=== PATIENT | female | born 1940 | race Caucasian/White ===

== ENCOUNTER 2023-09-29 06:15 | Day surgery (SDC) | payer MEDICARE, OTHER, SELFPAY ==
[2023-09-21 08:05] VITALS: BMI 22.6
[2023-09-29] VITALS (13 sets, daily range): BP systolic 102–167; BP diastolic 43–84; PULSE 55–76; RESP 15–25; TEMP 35.7–36.6; O2SAT 92–100; BMI 21.6
--- NOTE | 2023-09-29 | DI.RAD.S_ITS ---
PROCEDURE: XR HIP W PEL IF DONE LT 2V INDICATIONS: LEFT GIULIANO TECHNIQUE: Fluoroscopic guidance utilized for a left total hip arthroplasty COMPARISON: None. FINDINGS: Fluoroscopic images submitted for a left total hip arthroplasty placement. Please see operative note for further discussion. IMPRESSION: Fluoroscopic guidance. Dictated by: Joao Sandy M.D. on 09/29/2023 at 10:54 Approved by: Joao Sandy M.D. on 09/29/2023 at 10:55
--- NOTE | 2023-09-29 06:00 | DI.RAD.S_ITS ---
PROCEDURE: XR HIP W PEL IF DONE LT 2V INDICATIONS: GIULIANO TECHNIQUE: 2 view(s) of the hip acquired. COMPARISON: [facility], CR, XR HIP W PEL IF DONE LT 2V, 09/29/2023, 9:21. FINDINGS: Bones: Patient is status post left hip arthroplasty, with hardware components in expected positions. The hip joint appears congruent. The visualized bony structures appear intact. Soft tissues: Overlying postoperative changes are noted. Coarse calcification projecting over the mid pelvis likely related to uterine fibroid.. IMPRESSION: Expected post-operative appearance of a hip arthroplasty. Dictated by: Morena Laguna MD, PhD on 09/29/2023 at 11:16 Approved by: Morena Laguna MD, PhD on 09/29/2023 at 11:17
[2023-09-29] MEDS: ACETAMINOPHEN 325 MG TABLET 975 MG PO (07:03)
[2023-09-29] MEDS: CELECOXIB 200 MG CAPSULE PO (07:04)
[2023-09-29] MEDS: LACTATED RINGERS 1,000 ML 42 ML IV ×2 (07:04→08:55)
[2023-09-29] MEDS: VANCOMYCIN 1,000 MG/200 ML PIGGYBACK 200 MG IV (07:04)
--- NOTE | 2023-09-29 07:41 | P.OP_ITS ---
Operative Date/Time/Diagnoses Date of procedure: 09/29/23 Time of procedure: 08:00 Pre-op diagnosis: Severe left hip OA Post-op diagnosis: same Procedure & Clinicians Procedure: Left total hip arthroplasty anterior approach Same procedure as scheduled: Yes Indications: The patient has had progressively worsening left hip pain with radiographic changes consistent with arthritis. Non-operative management has failed and the patient has requested total hip replacement. The risks, benefits and alternatives to surgery were discussed with the patient prior to proceeding. Risks discussed included, but were not limited to, failure to relieve pain, leg length discrepancy, dislocation, stiffness, infection, nerve damage, deep venous thrombosis, pulmonary embolism, stroke, coma, heart attack, permanent paralysis and , as well as the potential need for eventual revision of the prosthetic. Surgeon: Seema Kent Sas Etl Developer: Mike Lopez Anesthesia Type: General and Spinal Operative Notes Findings: Severe left hip osteoarthritis, soft bone, extremely soft and eroded acetabulum, severe fragmentation of the femoral head with severe synovitis and multiple loose bodies Closure Type: primary Specimen(s): none sent Prosthetic devices, grafts, tissues, transplants, or devices: Kent and nephew Redapt cup size 56, neutral poly liner,two 6.5 mm screw 1 not locked, 1 locked, polar stem standard offset size 2 with collar, 36+ 0 cobalt chrome head Estimated Blood Loss (mL): 250 Blood products transfused: none Procedure in detail: The patient was brought to the operating room. Patient was carefully positioned in the supine position. Time-out was performed and antibiotics were given. Anesthesia was induced. She was positioned in the on the table in order to allow hyperextension of the hip. The left lower extremity was prepped and draped in a standard sterile fashion. An anterior left hip incision was made 1 fingerbreadth lateral to the anterior superior iliac spine and extended distally towards the greater trochanter. Dissection was carried out through skin and subcutaneous tissues. Superficial hemostasis was achieved. The fascia over the tensor fascia cecile was defined and incised with a knife. Two Allis clamps were used to grasp the fascia. Tensor fascia cecile was retracted laterally. A gelpi retractor was placed. Dissection was carried out down along the neck. The circumflex vessels were carefully identified and cauterized with the Aqua Mantis. A PA was used during the procedure was essential for intraoperative retraction and safe implantation of the components. Additional dissection was required because of the severe fragmentation of the femoral head. There was severe synovitis and marked abnormality of the capsule with inflammation and marked thickening. There was severe fragmentation of the femoral head with multiple fragments. There was good visualization of the femoral neck. A Cobra was placed superior to the neck and the gluteus fibers were carefully stripped from that superior aspect of the capsule. A 2nd retractor was placed along the inferior aspect of the neck. The rectus insertion along the capsule was partially released. A 3rd retractor that was then gently placed over the rim of the acetabulum under the rectus. Capsule was carefully incised and released from the intertrochanteric line circumferentially superior to the mid sagittal line and inferiorly to the mid sagittal line until the lesser trochanter was palpable. A tag stitch was placed both in the superior and inferior limb of the capsular insertion. Along the acetabulum capsule was also released up to the mid sagittal 12:00 position. A portion of the labrum was resected. A saw was used to perform an osteotomy at the level of the intertrochanteric line and the junction of the superior femoral neck leaving approximately 1 finger breath of residual inferior neck above the lesser trochanter. A 2nd cut was made along the femoral neck at the base of the head and a napkin r ing of neck was removed. Corkscrew was placed in the femoral head and the head was removed without difficulty. There were multiple fragments of the femoral head and severe synovitis and synovectomy as well as generalized debridement of the acetabulum was performed. Retractors were then repositioned around the acetabulum. Residual labrum was resected and additional osteophytes were removed. A reamer that was 4 mm below the templated size was placed by hand in the acetabulum and it was reamed to centralize the acetabulum. It was then reamed up to 2 under the templated size and fluoroscopy was brought in to confirm the position of the reaming and depth of reaming. I reamed 1 under the anticipated size. A trial cup was placed and noted that it was appropriately sized and fluoroscopy confirmed position and depth. The component was open and inserted without difficulty fluoroscopic imaging was used to confirm that the cup had been adequately seated and was well positioned. The bone was very soft and there were areas of erosion. It was felt that she was better served with a Redapt cup because of the severity of bone loss in her acetabulum. It was further stabilized with a a nonlocking and 1 locking. Neutral poly liner was placed. The cup was tested and noted to be stable. Attention was then directed to the femur. The femur was gently hyperextended additional capsular release was performed as needed in order to allow adequate visualization of the proximal femur with elevation of the femur. Patient was placed in a hyperextended slightly adducted position with maximum external rotation. Box osteotome was used to check for any residual neck as well as sclerotic bone along the trochanter. [place] pepper was placed in the femur. Additional broaching was performed. Canal finder was used to determine the alignment of the canal and position. Size 1 broach was placed. The canal was then appropriately broached up to the templated size as long as there was adequate stability of the broach and serial advancement of the broach without excessive impingement. Specific attention was directed at avoiding varus attempting to direct the distal aspect of the broach more anteriorly and avoiding excessive anteversion. Trial reduction showed acceptable range of motion, good stability, no posterior impingement, mandaeism of leg length and appropriate lateral shuck. I also hyperflexed the hip and checked that there was no impingement anteriorly and there was good stability with flexion, adduction and internal rotation. Marcaine and Exparel were injected.. The stem was placed without difficulty. Repeat trial reduction and x-ray showed acceptable overall position, length, and no evidence of the femoral fracture. Final head was placed. Wound was meticulously irrigated with normal saline. The hip was reduced and additional Exparel and Marcaine were injected. The capsule was closed with interrupted nonabsorbable sutures. The fascia of the tensor was closed with interrupted and running Vicryl. No drain was placed. Any tensor fascia cecile muscle that appeared to be contused or injured which was a minimal amount was carefully resected. Capsule around the tensor was injected with Exparel and Marcaine. The skin was closed with barbed stitches for the subcutaneous tissue and skin. We also used surgical glue. The wound was dressed sterilely. Patient was transferred to recovery room in satisfactory condition. Complications: none Post-operative Condition: stable Disposition: Acute Care Plan for aftercare: The patient will be maintained on a standard total hip replacement protocol with weight bearing as tolerated and anterior hip precautions. The patient will receive Aspirin and sequential compression devices for DVT prophylaxis. The patient will be discharged home when safe for the home environment.
--- NOTE | 2023-09-29 07:41 | PM.PREOP ---
Pre-operative Note Interval Note History & Physical reviewed/Exam performed by Physician: Yes Changes to H&P: No
[2023-09-29] MEDS: CEFAZOLIN 2 GM/100 ML PREMIX 100 ML IV ×2 (08:00→16:44)
--- NOTE | 2023-09-29 08:32 | SUR.OPER ---
Supine on padded [place] table with bilateral legs secured in padded positioning boots and suspended in positioning spars, operative leg in traction per surgeon. Head on one pillow. Arm on non-operative side secured on padded armboard <90 degrees abduction. Arm on operative side padded and resting across chest then secured with tape over sheet. Padded perineal post in place per surgeon.
[2023-09-29] MEDS: BUPIVACAINE 0.25% (PF) 60 ML, EPINEPHrine 0.3 MG INJ (08:44)
[2023-09-29] MEDS: BUPIVACAINE LIPOSOME 266 MG/20 ML VIAL INJ ×2 (08:44→10:33)
[2023-09-29] MEDS: TRANEXAMIC ACID 1,000 MG VIAL 2000 MG INJ ×2 (08:48→10:31)
--- NOTE | 2023-09-29 11:38 | SUR.PHASEI ---
Report called to Natalie. Patient transferred to the floor with her belongings bag by DYAN Gipson.
--- NOTE | 2023-09-29 13:45 | PT.IIE ---
Current Diagnoses Unilateral primary osteoarthritis, left hip (09/29/23) Surgery Performed Operation Date: 09/29/23 07:45 Actual Procedures p Total Hip Arthroplasty/Anterior Approach(Left) - Seema Kent MD Surgical History (Last Reviewed 09/29/23 @ 07:01 by Silvia Grace, RN) Hx of bilateral cataract extraction Hx of sinus surgery Medical History (Last Reviewed 09/29/23 @ 07:01 by Silvia Grace, RN) Alzheimer disease Aortic regurgitation History of COVID-19 (04/2022) History of Mohs micrographic surgery for skin cancer HLD (hyperlipidemia) Macular degeneration Mobitz type 1 second degree AV block Osteoarthritis PFO (patent foramen ovale) Pre-diabetes RBBB (right bundle branch block) SCC (squamous cell carcinoma) Physical Therapy Inpatient Evaluation/Re-Eval M1 PT/OT-IP Prior Functional Status Start: 09/29/23 15:31 Freq: NEEDED Status: Active Protocol: Document 09/29/23 13:45 AB (Rec: 09/29/23 15:47 AB [id number]) Medical Review Prior Functional Status Medical History Reviewed Yes Communication able to make needs known Mobility and Gait pt stated that she was modified independent with all mobilities and ambulation without AD but slowly declining in mobility within this year due to hip pain; started using a FWW for the last 2 weeks. Social History Household Members none Living Arrangements House Number of Floors (Floors) One Floor Number of Stairs To Enter/Railing? pt has a guest house that she plans on staying upon d/c: 1 level house with 1 step to enter Home Environment Walk in Shower Home Equipment Front Wheel Walker,Quad Cane, Raised Toilet Seat w/Armrests, Shower Seat without Backrest, Hand Held Shower,Grab Bars In Shower Additional Social History Comment pt's daughter and son-in-law will be staying with pt M2 PT-IP Current Condition Start: 09/29/23 15:31 Freq: NEEDED Status: Active Protocol: Document 09/29/23 13:45 AB (Rec: 09/29/23 15:47 AB [id number]) Physical Therapy Current Condition Current Condition Evaluation Date 09/29/23 Treatment Diagnosis s/p L GIULIANO anterior; difficulty in walking Onset Date 09/29/23 M3 PT-IP Subjective Start: 09/29/23 15:31 Freq: NEEDED Status: Active Protocol: Document 09/29/23 13:45 AB (Rec: 09/29/23 15:47 AB [id number]) Subjective Physical Therapy Visit Type Type Initial Evaluation Visit Start Time 13:45 Visit Stop Time 15:15 Number of GOVERNMENT AFFAIRS SPECIALIST Visits 0 Physical Therapy Visit Comments Patient Comments agreeable to do PT Therapy Pain Assessment Pain Present Pain Present Denied Pain M4 PT-IP Mobility and Gait Start: 09/29/23 15:31 Freq: NEEDED Status: Active Protocol: Document 09/29/23 13:45 AB (Rec: 09/29/23 15:47 AB [id number]) PT-Bed Mobility Assessment Supine to Sit Supine to Sit Standby Assistance PT-Transfer Assessment Sit to and From Stand Sit to and from Stand Minimal Assistance,1 Person Assistance,Use of Upper Extremities Equipment Transfer Assistive Device Gait Belt,Front Wheeled Walker Orthotic/Prosthetic Devices or Brace: No Transfers Transfer Destination Toilet Transfer Technique ambulated Transfer Ability Level of Assist Minimal Assistance,1 Person Assistance,Use of Upper Extremities Comments Mobility Comments pt supine in bed and agreeable to do PT. obtained PLOF and home set up from pt and daughter. pt with memory issues and needs increase time to respond to questions. post -op folder provided to pt and reviewed contents. educated pt regarding L hip anterior precautions. BP in supine: 124/47 O2 sat : 95 AL: 44 pt completed supine to sit SBA . able to sit on EOB SBA. BP: in sittin/52 O2 sat: 100 AL: 38-55. c/o lightheadedness with initial sitting but decreased after a few minutes of sitting on EOB. Pt requesting to use the toilet. completed sit to stand min A and ambulated to the toilet using FWW min A and max cues. pt requiring one step instructions with all tasks and gets easily distracted. pt required min A for standing balance while completing hygiene care and brief management. pt ambulated out of the toilet to the chair using FWW min A and cues. BP: 136/66 AL: 62 O2 sat 100. positioned pt on the chair. call light and table placed within reach. set up caregiver training with pt's daughter for tomorrow at 9 am. Gait Assessment Gait Gait Assistance Required: Minimum Assistance Distance (Feet) 15 Able to Maintain Weight Bearing Status Yes During Gait Assistive Devices Assistive Device Gait Belt,Front Wheeled Walker Orthotic/Prosthetic Devices or Brace: No Gait Deviations General Gait Pattern Antalgic,Decreased Feet Clearance Factors Limiting Gait Function Factors Limiting Gait Function Decreased Activity Tolerance, Decreased Strength,Difficulty Following Directions,Limited Range of Motion,Pain,Poor Balance,Poor Safety Awareness PT-Balance Assessment Sitting Balance and Reactions Static Sitting Balance Ability Good Dynamic Sitting Balance Ability Good Standing Balance and Reactions Static Standing Balance Ability Fair Dynamic Standing Balance Ability Fair Device Used FWW M5 PT-IP Objective Assessments Start: 09/29/23 15:31 Freq: NEEDED Status: Active Protocol: Document 09/29/23 13:45 AB (Rec: 09/29/23 15:47 AB [id number]) Orientation Orientation/Cognition Level of Alertness Alert Orientation Name,Place,Situation Language Function Ability No Deficits Noted Safety Awareness Decreased Safety Awareness Memory Description Short Term Impaired,Nursing Home Impaired Gross Range of Motion Lower Extremity ROM Assessment Within Functional Limits Strength Lower Extremity Strength Assessment Left Impaired Hip 3-/5 Knee 4-/5 Coordination Assessment Gross Coordination Gross Coordination WNL Sensation Assessment Sensation Gross Sensation WNL Muscle Tone Muscle Tone WNL Yes M6 PT-IP Treatment Start: 09/29/23 15:31 Freq: NEEDED Status: Active Protocol: Document 09/29/23 13:45 AB (Rec: 09/29/23 15:47 AB [id number]) Physical Therapy Treatment Education Education Provided Precautions,Weight Bearing Status,Post-Op Packet,Safety M7 PT-IP Assessment and Plan Start: 09/29/23 15:31 Freq: NEEDED Status: Active Protocol: Document 09/29/23 13:45 AB (Rec: 09/29/23 15:47 AB [id number]) PT Summary Assessment and Plan Potential Rehabilitation Potential Fair Status of Condition at Evaluation Evolving Summary Impairments Pain,ROM,Strength,Balance, Coordination,Sensation,Tone, Cognition,Bed Mobility, Transfers,Gait,Activity Tolerance Assessment Summary pt is an 83 y/o F s/p L GIULIANO anterior approach POD 0. pt with L hip anterior precautions and is WBAT. pt requiring min A with mobility using fWW and max cues with all tasks. pt unable to carryover L hip precautions during mobility and needs constant cues for safety. caregiver training set up for tomorrow at 9 am. will continue to assess. Goals Bed Mobility Goal Independent Transfer Goal Independent,Front Wheeled Walker Gait Goal Independent,Front Wheel Walker Gait Distance 150 Other Goals improve transfers and ambulation using LRAD ~ 200 ft mod I up/down 1 step using FWW mod I Days to Meet Goals 5 Frequency of Treatment Frequency Of Treatment Twice a Day Treatment Plan Physical Therapy Treatment Plan Bed Mobility Training,Transfer Training,Gait Training, Therapeutic Exercise,Balance Retraining,Post Op Education, Discharge Planning,Hot or Cold Pack,Neuromuscular Re-ed, Coordination Retraining,Manual Therapy Other Recommendations and Next Treatment caregiver training 09/29 @ 9 am Focus Precautions Anterior Hip Precautions No Hip Extension,No Hip External Rotation Weight Bearing Status Weight Bearing Status Weight Bear as Tolerated Allowed Weight Bearing Amount (enter % LLE WBAT or #) (%) Recommendations To Nursing Amount of Assist Needed 1 Person Assist Discharge Recommendations PT Discharge Recommendations Home with Assistance, Outpatient PT Transportation Needs at Discharge Private Vehicle
[2023-09-29] MEDS: IBUPROFEN 400 MG TABLET PO ×2 (15:17→21:13)
[2023-09-29] MEDS: ACETAMINOPHEN 325 MG TABLET 650 MG PO ×2 (15:17→21:14)
--- NOTE | 2023-09-29 16:43 | OT.IP.EVAL ---
Current Diagnoses Unilateral primary osteoarthritis, left hip (09/29/23) Surgery Performed Operation Date: 09/29/23 07:45 Actual Procedures p Total Hip Arthroplasty/Anterior Approach(Left) - Seema Kent MD Past Medical History (Last Reviewed 09/29/23 @ 07:01 by Silvia Grace, RN) Alzheimer disease Aortic regurgitation History of COVID-19 (04/2022) History of Mohs micrographic surgery for skin cancer HLD (hyperlipidemia) Macular degeneration Mobitz type 1 second degree AV block Osteoarthritis PFO (patent foramen ovale) Pre-diabetes RBBB (right bundle branch block) SCC (squamous cell carcinoma) Surgical History (Last Reviewed 09/29/23 @ 07:01 by Silvia Grace, DYAN) Hx of bilateral cataract extraction Hx of sinus surgery Occupational Therapy Inpatient Evaluation/Re-Eval M1 PT/OT-IP Prior Functional Status Start: 09/29/23 15:31 Freq: NEEDED Status: Active Protocol: Document 09/29/23 16:47 [facility] (Rec: 09/29/23 17:02 [facility] [id number]) Medical Review Prior Functional Status Medical History Reviewed Yes Communication able to make needs known Mobility and Gait pt stated that she was modified independent with all mobilities and ambulation without AD but slowly declining in mobility within this year due to hip pain; started using a FWW for the last 2 weeks. Activities of Daily Living and IADL's Pt states able to do all ADL and IADl needs and still doing pilates, but had pain. Social History Household Members none Living Arrangements House Number of Floors (Floors) One Floor Number of Stairs To Enter/Railing? pt has a guest house that she plans on staying upon d/c: 1 level house with 1 step to enter Home Environment Walk in Shower Home Equipment Front Wheel Walker,Quad Cane, Bedside Commode,Raised Toilet Seat w/Armrests,Shower Seat without Backrest,Hand Held Shower,Long Handled Shoe Horn, Sprinkler Tender,Sock Aid,Grab Bars In Shower Additional Social History Comment pt's daughter and son-in-law will be staying with pt M2 OT-IP Current Condition Start: 09/29/23 16:47 Freq: Status: Active Protocol: Document 09/29/23 16:47 [facility] (Rec: 09/29/23 17:02 [facility] [id number]) Occupational Therapy Current Condition Current Condition Evaluation Date 09/29/23 Treatment Diagnosis S/P L GIULIANO Anterior approach Diagnosis Onset Date 09/29/23 Post Operative Precautions Anterior Hip Precautions No Hip Extension,No Hip External Rotation M3 OT- IP Subjective and Pain Start: 09/29/23 16:47 Freq: Status: Active Protocol: Document 09/29/23 16:47 [facility] (Rec: 09/29/23 17:02 [facility] [id number]) OT- Subjective Occupational Therapy Visit Type Type Initial Evaluation Visit Start Time 16:00 Visit Stop Time 16:43 Occupational Therapy Visit Comments Patient Comments Pt agreed to get up to brush her teeth. Pt's daughter in the room and able to initiate caregiver training. Patient/Caregiver Goals TO go home. OT Pain Assessment Pain When Pain Assessed At Rest Pain Present Pain Present Denied Pain M4 OT- IP ADL's Start: 09/29/23 16:47 Freq: Status: Active Protocol: Document 09/29/23 16:47 [facility] (Rec: 09/29/23 17:02 [facility] [id number]) OT LIS-[facility] General Evaluation Self-Feeding Ability Independent OT ADL-Grooming General Evaluation Areas Needing Assistance Retrieving/Set-up of Grooming Items Comments OT Grooming Comments Able to do while standing at the sink with FWW. OT ADL-Oral Care General Eval Oral Care Ability Independent OT ADL-Dressing General Eval Lower Body Dressing Ability Maximum Assistance Areas Needing Assistance Socks Comments OT Dressing Comments Pt has borrowed LB dressing equipment from a friend to use . Educated to dress the LLE first and take out last. ALso to be mindful of her LLE positioning during ADL needs. OT ADL-Toileting Comments OT Toileting Comments Pt just used the toilet prior to OT coming in. Suggested use of BSC as her bathroom is 23 ft away. Also suggested may be helpful to wear pads so not having to pacheco to the toilet at night, the toilet is 23 ft away. Pt's daughter to assist. OT ADL-Bathing Comments OT Bathing Comments The shower is very small and only big enough for a shower stool. Educated for care of the bandage while showering. M5 OT- IP IADL's Start: 09/29/23 16:47 Freq: Status: Active Protocol: Document 09/29/23 16:47 [facility] (Rec: 09/29/23 17:02 [facility] [id number]) OT-Instrumental Activities of Daily Living Home Safety Awareness Awareness of Need for Assistance at Home Good Awareness Ability to Problem Solve Emergency Able to Problem Solve Situations Home Safety Comments Pt a little groggy at this time and will benefit from assist at this time for ADL and IADL needs. M6 OT- IP Functional Cognition Start: 09/29/23 16:47 Freq: Status: Active Protocol: Document 09/29/23 16:47 [facility] (Rec: 09/29/23 17:02 [facility] [id number]) Cognitive Factors Limiting Selfcare Function Cognitive Ability Level of Alertness Alert,Drowsy Patient Orientation Name,Place,Situation Attention Span Ability Capable of Focused Attention, Capable of Sustained Attention Ability to Follow Commands Able to Follow One Step Commands with Increased Time, Able to Follow One Step Commands with Repetition Memory Description Short Term Impaired Safety Awareness Decreased Ability to Apply Precautions Cognitive Comments Cognitive Assessment Comments Pt needing increased time to process and follow the anterior precautions. Pt still groggy from surgery at this time. VC for safety awareness for FWW use and hand placement. Pt's daughter able to safely assist and provide appropriate vc for FWW use and anterior precautions. OT- Vision and Hearing OT- Vision Assessment Visual Acuity Glasses For Reading Visual Attentiveness WFL Occular Pursuits WFL M7 OT- IP Mobility and Balance Start: 09/29/23 16:47 Freq: Status: Active Protocol: Document 09/29/23 16:47 [facility] (Rec: 09/29/23 17:02 [facility] [id number]) OT-Transfer Assessment Sit to and From Stand Sit to and from Stand Contact Guard Assistance, Minimal Assistance Transfers Transfer Ability Contact Guard Assistance Technique Transfer Destination Chair Transfer Technique Stand Step Pivot Devices Transfer Assistive Devices Gait Belt,Front Wheeled Walker OT- Balance Assessment Sitting Balance and Reactions Static Sitting Balance Ability Good Dynamic Sitting Balance Ability Good Standing Balance and Reactions Static Standing Balance Ability Good Dynamic Standing Balance Ability Fair M8 OT- IP Objective Assessments Start: 09/29/23 16:47 Freq: Status: Active Protocol: Document 09/29/23 16:47 [facility] (Rec: 09/29/23 17:02 [facility] [id number]) OT Gross Range of Motion Upper Extremity Range of Motion Assessment Within Functional Limits OT Strength Upper Extremity Strength Assessment Within Functional Limits M9 OT- IP Assessment and Plan Start: 05/28/24 16:47 Freq: Status: Active Protocol: Document 09/29/23 16:47 [facility] (Rec: 09/29/23 17:02 [facility] [id number]) OT Summary Assessment and Plan Potential Rehabilitation Potential Good Analytic Complexity at Evaluation Low Summary OT Impairments Strength,Balance,Functional Mobility,Grooming,Dressing, Toileting,Bathing,Toilet Transfers,Shower Transfers Progress Towards Goals Progressing Toward Goals Assessment Summary Pt low complexity and main barrier are a step, still groggy from surgery and needing MAX vc to be able to recall and incorporate her anterior precautions for ADL and mobility needs. Pt's daughter present and able to do caregiver training for gait belt management, transfers, and ADL's. Pt to go home with assist when medically stable and attend outpt PT. Goals Grooming Goal Independent Dressing Goal Independent,Long Handled Shoe Horn,Sprinkler Tender,Sock Aid Toileting Goal Independent Bathing Goal Standby Assistance Toilet Transfer Goal Independent Shower Transfer Goal Standby Assistance Days to Meet Goals 7 Frequency of Treatment Frequency Of Treatment Once a Day Treatment Plan OT Treatment Plan ADL Training,Functional Mobility,Patient/Family Education,Discharge Planning Discharge Recommendations OT Discharge Recommendations Home with 24/11 Assist Available,Outpatient PT Transportation Needs at Discharge Private Vehicle
[2023-09-29] MEDS: LACTATED RINGERS 1,000 ML 100 ML IV (20:01)
[2023-09-29] MEDS: DOCUSATE 100 MG CAPSULE PO (21:13)
[2023-09-29] MEDS: ASPIRIN EC 81 MG TABLET PO (21:13)
[2023-09-30] MEDS: CEFAZOLIN 2 GM/100 ML PREMIX 100 ML IV (01:00)
[2023-09-30 05:03] LABS: Hemoglobin 9.4 g/dL (12.0-16.0)
--- NOTE | 2023-09-30 06:59 | PC.NURSE ---
pt has had an uneventful shift; amb w/ SBA and FWW; no complaints of pain
[2023-09-30 08:00] VITALS: BP 136/71; PULSE 76; RESP 17; TEMP 36.2; O2SAT 97
[2023-09-30] MEDS: IBUPROFEN 400 MG TABLET PO (08:40)
[2023-09-30] MEDS: ACETAMINOPHEN 325 MG TABLET 650 MG PO (08:40)
[2023-09-30] MEDS: ASPIRIN EC 81 MG TABLET PO (08:41)
[2023-09-30] MEDS: DOCUSATE 100 MG CAPSULE PO (08:41)
--- NOTE | 2023-09-30 09:00 | PT.IPTN ---
Current Diagnoses Unilateral primary osteoarthritis, left hip (09/29/23) Surgery Performed Operation Date: 09/29/23 07:45 Actual Procedures p Total Hip Arthroplasty/Anterior Approach(Left) - Seema Kent MD Physical Therapy Treatment Note M2 PT-IP Current Condition Start: 09/29/23 15:31 Freq: NEEDED Status: Discharge Protocol: Document 09/29/23 13:45 AB (Rec: 09/29/23 15:47 AB [id number]) Physical Therapy Current Condition Current Condition Evaluation Date 09/29/23 Treatment Diagnosis s/p L GIULIANO anterior; difficulty in walking Onset Date 09/29/23 M3 PT-IP Subjective Start: 09/29/23 15:31 Freq: NEEDED Status: Discharge Protocol: Document 09/30/23 09:00 AB (Rec: 09/30/23 13:21 AB [id number]) Subjective Physical Therapy Visit Type Type Treatment Note Visit Start Time 09:00 Visit Stop Time 10:00 Number of [employer] PROGRAMMER ANALYST Visits 0 Physical Therapy Visit Comments Patient Comments agreeable to do PT Therapy Pain Assessment Pain When Pain Assessed At Rest Pain Present Pain Present Pain Reported Location Left Hip Intensity 2 Scale Used Numeric (0 - 10) Pain Management Techniques Modification of Treatment,Re- positioning,Timing of Activity with Medications M4 PT-IP Mobility and Gait Start: 09/29/23 15:31 Freq: NEEDED Status: Discharge Protocol: Document 09/30/23 09:00 AB (Rec: 09/30/23 13:21 AB [id number]) PT-Bed Mobility Assessment Supine to Sit Supine to Sit Standby Assistance Sit to Supine Sit to Supine Standby Assistance PT-Transfer Assessment Sit to and From Stand Sit to and from Stand Contact Guard Assistance,1 Person Assistance,Use of Upper Extremities Equipment Transfer Assistive Device Gait Belt,Front Wheeled Walker Orthotic/Prosthetic Devices or Brace: No Transfers Transfer Destination Bed,Chair Transfer Technique ambulated Transfer Ability Level of Assist Contact Guard Assistance,1 Person Assistance,Use of Upper Extremities Comments Mobility Comments pt sitting on the chair and agreeable to do PT. daughter in room for caregiver training . educated daughter on how to use safety belt and how to assist pt. daughter was able to assist pt with sit to stand and ambulated pt in room using FWW ~ 30 ft SBA to CGA. pt sat on EOB. completed bed mobility SBA and max cues. pt with difficulty completing tasks and needs max cues for techniques. bed mobility supine<>sit training x 5 reps and max cues. pt sat on EOB. agreed to do stairs. pt ambulated towards platform step using FWW SBA to CGA. completed up/down platform step using FWW CGA with PT initially assisting. pt repeated and daughter assisted pt. pt ambulated back to her room using FWW SBA to CGA. pt sat on the chair. pt tends to plop back and not reach back for the chair. educated pt on safety and techniques with sit<>stand. pt required max cues. completed sit<> stand x 5 reps CGA and max cues. positioned pt on the chair. call light and table placed within reach. pt and daughter without further concerns. Gait Assessment Gait Gait Assistance Required: Standby Assistance,Contact Guard Assist Distance (Feet) 30 Able to Maintain Weight Bearing Status Yes During Gait Assistive Devices Assistive Device Gait Belt,Front Wheeled Walker Orthotic/Prosthetic Devices or Brace: No Gait Deviations General Gait Pattern Antalgic,Decreased Feet Clearance,Flexed Trunk Factors Limiting Gait Function Factors Limiting Gait Function Decreased Activity Tolerance, Decreased Strength,Difficulty Following Directions,Limited Range of Motion,Pain,Poor Balance,Poor Safety Awareness Stair Climbing Assessment Evaluation Level of Assist On Stairs Contact Guard Assistance Devices Stair Climbing Assistive Devices Front Wheel Walker Technique/Endurance Stair Climbing Direction Ascend and Descend Stair Climbing Technique Step to Step Number of Steps Climbed 1 Stair Climbing Set # Repetitions (reps) 2 M5 PT-IP Objective Assessments Start: 09/29/23 15:31 Freq: NEEDED Status: Discharge Protocol: Document 09/29/23 13:45 AB (Rec: 09/29/23 15:47 AB [id number]) Orientation Orientation/Cognition Level of Alertness Alert Orientation Name,Place,Situation Language Function Ability No Deficits Noted Safety Awareness Decreased Safety Awareness Memory Description Short Term Impaired,Snf Impaired Gross Range of Motion Lower Extremity ROM Assessment Within Functional Limits Strength Lower Extremity Strength Assessment Left Impaired Hip 3-/5 Knee 4-/5 Coordination Assessment Gross Coordination Gross Coordination WNL Sensation Assessment Sensation Gross Sensation WNL Muscle Tone Muscle Tone WNL Yes M6 PT-IP Treatment Start: 09/29/23 15:31 Freq: NEEDED Status: Discharge Protocol: Document 09/30/23 09:00 AB (Rec: 09/30/23 13:21 AB [id number]) Physical Therapy Treatment Education Education Provided Precautions,Weight Bearing Status,Safety M7 PT-IP Assessment and Plan Start: 09/29/23 15:31 Freq: NEEDED Status: Discharge Protocol: Document 09/30/23 09:00 AB (Rec: 09/30/23 13:21 AB [id number]) PT Summary Assessment and Plan Potential Rehabilitation Potential Good Summary Impairments Pain,ROM,Strength,Balance, Coordination,Sensation,Tone, Cognition,Bed Mobility, Transfers,Gait,Activity Tolerance Progress Towards Goals Slow Progress - Other Assessment Summary pt requiring SBA to CGA with mobility using FWW. caregiver training conducted and daughter is able to assist pt safely. pt may go home when medically stable. Goals Bed Mobility Goal Independent Transfer Goal Independent,Front Wheeled Walker Gait Goal Independent,Front Wheel Walker Gait Distance 150 Other Goals improve transfers and ambulation using LRAD ~ 200 ft mod I up/down 1 step using FWW mod I Days to Meet Goals 5 Frequency of Treatment Frequency Of Treatment Twice a Day Treatment Plan Physical Therapy Treatment Plan Bed Mobility Training,Transfer Training,Gait Training, Therapeutic Exercise,Balance Retraining,Post Op Education, Discharge Planning,Hot or Cold Pack,Neuromuscular Re-ed, Coordination Retraining,Manual Therapy Precautions Anterior Hip Precautions No Hip Extension,No Hip External Rotation Weight Bearing Status Weight Bearing Status Weight Bear as Tolerated Allowed Weight Bearing Amount (enter % LLE WBAT or #) (%) Recommendations To Nursing Amount of Assist Needed 1 Person Assist Discharge Recommendations PT Discharge Recommendations Home with Assistance, Outpatient PT Transportation Needs at Discharge Private Vehicle
--- NOTE | 2023-09-30 09:45 | PM.DS.1 ---
History of Present Illness History of Present Illness Date Patient Seen: 09/30/23 Time Patient Seen: 09:45 Chief complaint: Hip pain Narrative: Patient's pain is [id number]. Fever or chills. No nausea vomiting. Discharge Providers Provider Discharge Date: 09/30/23 Primary care physician: Skinny Anand DO Consults: 09/29/23 06:00 Consult to Anesthesiology Routine Comment: Consulting Provider: Anesthesiologist Reason for consultation: Regional block for post operative pain control 09/29/23 11:51 Consult to Discharge Planning Routine Comment: Consult to Occupational Therapy Evaluate & Treat Comment: Physician Instructions: Evaluate and treat Consult to Physical Therapy Evaluate & Treat Comment: Physician Instructions: post op GIULIANO protocol Discharge provider: Mike Lopez PA-C Summary Hospital Course Discharge Diagnosis: Left total hip arthroplasty, anterior Hospital Course: Left total hip arthroplasty anterior approach Same procedure as scheduled: Yes Indications: The patient has had progressively worsening left hip pain with radiographic changes consistent with arthritis. Non-operative management has failed and the patient has requested total hip replacement. The risks, benefits and alternatives to surgery were discussed with the patient prior to proceeding. Risks discussed included, but were not limited to, failure to relieve pain, leg length discrepancy, dislocation, stiffness, infection, nerve damage, deep venous thrombosis, pulmonary embolism, stroke, coma, heart attack, permanent paralysis and , as well as the potential need for eventual revision of the prosthetic. Surgeon: Seema Kent Emg Technician: Mike Lopez Anesthesia Type: General and Spinal Operative Notes Findings: Severe left hip osteoarthritis, soft bone, extremely soft and eroded acetabulum, severe fragmentation of the femoral head with severe synovitis and multiple loose bodies Closure Type: primary Specimen(s): none sent Prosthetic devices, grafts, tissues, transplants, or devices: Kent and nephew Redapt cup size 56, neutral poly liner,two 6.5 mm screw 1 not locked, 1 locked, polar stem standard offset size 2 with collar, 36+ 0 cobalt chrome head Estimated Blood Loss (mL): 250 Patient admitted to the hospital for left total hip arthroplasty. Patient consented to the same. Patient underwent left total hip arthroplasty, anterior approach on September 29, 2023. Patient back in her room recovering well as in stable condition. Multimodal pain management. Anterior hip precautions. Discharge home after physical therapy if safe for home environment. Exam Vital Signs (past 8 hours): - 09/30/23 08:00 09/30/23 09:30 Temperature 97.2 F L Pulse Rate 76 Respiratory Rate 17 Blood Pressure 136/71 Pulse Oximetry 97 Oxygen Delivery Method Room Air Oxygen Flow Rate 0 Oxygen Delivery Method Room Air Oxygen Flow Rate 0 Narrative Exam Narrative: 83-year-old female sitting at bedside with physical therapy in no apparent distress. Dressing is clean, dry and intact. Neurovascular status is intact bilateral lower extremities. Const General: cooperative and comfortable Nutritional Appearance: average body habitus Orientation: alert Resp Effort & Inspection: normal respiratory effort and able to speak in complete sentences Objective Labs 09/30/23 04:45 Labs: Laboratory Results - last 24 hr 09/30/23 04:45 Hgb 9.4 L Hct 27.0 L PFSH Medical History Mobitz type 1 second degree AV block PFO (patent foramen ovale) Alzheimer disease HLD (hyperlipidemia) Aortic regurgitation Macular degeneration History of Mohs micrographic surgery for skin cancer SCC (squamous cell carcinoma) Osteoarthritis Pre-diabetes History of COVID-19 (04/2022) RBBB (right bundle branch block) Surgical History Hx of sinus surgery Hx of bilateral cataract extraction Social History household members: none Smoking Status: Never smoker alcohol intake: former Discharge Assessment & Plan Assessment and Plan Assessment: Patient progressing as expected status post left total hip arthroplasty, anterior approach Plan of Treatment: Multimodal pain management Anterior hip precautions Aspirin 81 mg b.i.d. for DVT prophylaxis Discharged home today after physical therapy is safe for home environment. Discharge Plan Discharge orders & Medications Discharge Orders: Discharge (Order); Ordered 09/30/23 Ordered By: Mike Lopez Prescriptions: New acetaminophen 325 mg Tablet 650 mg PO Q6H PRN (Reason: Fever/Mild Pain (1-3)) Qty: 60 0RF aspirin 81 mg Tablet,Delayed Release (Dr/Ec) 81 mg PO BID Qty: 60 0RF ibuprofen 400 mg Tablet 400 mg PO Q4H PRN (Reason: Pain, Mild (1-3)) Qty: 60 0RF Discontinued acetaminophen 500 mg Tablet 500 mg PO TID ibuprofen 200 mg Tablet 400 mg PO TID Follow up/Referrals: Kika,Skinny L, DO [Primary Care Provider] - Seema Kent MD [Physician] - 10/13/23 1:00 pm (Follow up w/ David Vargas PA-C, at [facility] office in [place].) Diet/Activity/Treatments Diet: Diet as Tolerated Activity: Weightbearing as tolerated. Anterior hip precautions. Cold/Heat Therapy: Ice to hip as needed for pain. Skin/Wound/Dressing Care Report to your healthcare provider any signs of infection, such as:: chills, fever, night sweats, unusual drainage and unusual redness Dressing: May shower. Leave dressing in place until follow up in office. No bathing or otherwise soaking incision. Call the office if the dressing becomes saturated inside. Visit Report/Discharge Packet Instructions: DI for Hip Replacement, DI for Prescription Opioid Use Stand Alone Forms: Patient Portal/API, Surgery Discharge Discharge Data Primary Care Provider: Skinny Anand Attending Provider: Seema Kent
--- NOTE | 2023-09-30 10:20 | OT.IP.TRT ---
Current Diagnoses Unilateral primary osteoarthritis, left hip (09/29/23) Surgery Performed Operation Date: 09/29/23 07:45 Actual Procedures p Total Hip Arthroplasty/Anterior Approach(Left) - Seema Kent MD Occupational Therapy Treatment Note M2 OT-IP Current Condition Start: 09/29/23 16:47 Freq: Status: Active Protocol: Document 09/29/23 16:47 [facility] (Rec: 09/29/23 17:02 [facility] [id number]) Occupational Therapy Current Condition Current Condition Evaluation Date 09/29/23 Treatment Diagnosis S/P L GIULIANO Anterior approach Diagnosis Onset Date 09/29/23 Post Operative Precautions Anterior Hip Precautions No Hip Extension,No Hip External Rotation M3 OT- IP Subjective and Pain Start: 09/29/23 16:47 Freq: Status: Active Protocol: Document 09/30/23 10:28 [facility] (Rec: 09/30/23 10:35 [facility] [id number]) OT- Subjective Occupational Therapy Visit Type Type Treatment Note Visit Start Time 10:05 Visit Stop Time 10:23 Occupational Therapy Visit Comments Patient Comments Pt agreed to get dressed and use the bathroom. Patient/Caregiver Goals To go home. OT Pain Assessment Pain When Pain Assessed During Mobility Pain Present Pain Present Pain Reported M4 OT- IP ADL's Start: 09/29/23 16:47 Freq: Status: Active Protocol: Document 09/30/23 10:28 [facility] (Rec: 09/30/23 10:35 [facility] [id number]) OT ADL-Dressing Comments OT Dressing Comments Pt able to recall to dress her LLE first as pt's daughter assisting to get her dressed. OT ADL-Toileting General Evaluation Toileting Ability Standby Assistance Comments OT Toileting Comments Pt SBA for safety and occasional vc for hand placement but able to do her toileting needs. OT ADL-Bathing Comments OT Bathing Comments Noted small shadow on the dressing and nursing notified. . M5 OT- IP IADL's Start: 09/29/23 16:47 Freq: Status: Active Protocol: Document 09/29/23 16:47 [facility] (Rec: 09/29/23 17:02 [facility] [id number]) OT-Instrumental Activities of Daily Living Home Safety Awareness Awareness of Need for Assistance at Home Good Awareness Ability to Problem Solve Emergency Able to Problem Solve Situations Home Safety Comments Pt a little groggy at this time and will benefit from assist at this time for ADL and IADL needs. M6 OT- IP Functional Cognition Start: 09/29/23 16:47 Freq: Status: Active Protocol: Document 09/30/23 10:28 [facility] (Rec: 09/30/23 10:35 [facility] [id number]) Cognitive Factors Limiting Selfcare Function Cognitive Ability Level of Alertness Alert Patient Orientation Name,Place,Situation Attention Span Ability Capable of Focused Attention, Capable of Sustained Attention Ability to Follow Commands Able to Follow One Step Commands with Increased Time, Able to Follow One Step Commands with Repetition Memory Description Short Term Impaired Safety Awareness Decreased Ability to Apply Precautions Cognitive Comments Cognitive Assessment Comments Pt doing better to recall her precautions, but still needing cues to FWW safety and hand placement at times. Pt's daughter able to demonstrate good safety to be able to assist and provide safety cues for the pt for ADl and mobility needs. M7 OT- IP Mobility and Balance Start: 09/29/23 16:47 Freq: Status: Active Protocol: Document 09/30/23 10:28 [facility] (Rec: 09/30/23 10:35 [facility] [id number]) OT-Transfer Assessment Sit to and From Stand Sit to and from Stand Standby Assistance Transfers Transfer Ability Standby Assistance Technique Transfer Destination Bed,Chair,Toilet Transfer Technique Stand Step Pivot Devices Transfer Assistive Devices None,Front Wheeled Walker Comments Mobility Comments Pt's daughter not wanting to use the gait belt and therefore educated her if pt needing assistance to hold her by the hips for control if needed. OT- Balance Assessment Sitting Balance and Reactions Static Sitting Balance Ability Normal Dynamic Sitting Balance Ability Good Standing Balance and Reactions Static Standing Balance Ability Good Dynamic Standing Balance Ability Good M8 OT- IP Objective Assessments Start: 09/29/23 16:47 Freq: Status: Active Protocol: Document 09/29/23 16:47 [facility] (Rec: 09/29/23 17:02 [facility] [id number]) OT Gross Range of Motion Upper Extremity Range of Motion Assessment Within Functional Limits OT Strength Upper Extremity Strength Assessment Within Functional Limits M9 OT- IP Assessment and Plan Start: 09/29/23 16:47 Freq: Status: Active Protocol: Document 09/30/23 10:28 [facility] (Rec: 09/30/23 10:35 [facility] [id number]) OT Summary Assessment and Plan Potential Rehabilitation Potential Good Analytic Complexity at Evaluation Low Summary Progress Towards Goals Progressing Toward Goals Assessment Summary Pt's daughter able to safely assist pt for all ADl and mobility needs. Pt going home with her daughter's assist and attend outpt PT. Still recommended that her daugther be present for showering needs . Goals Grooming Goal Independent Dressing Goal Independent,Long Handled Shoe Horn,Manager Software Development,Sock Aid Toileting Goal Independent Bathing Goal Standby Assistance Toilet Transfer Goal Independent Shower Transfer Goal Standby Assistance Days to Meet Goals 3 Frequency of Treatment Frequency Of Treatment Once a Day Treatment Plan OT Treatment Plan ADL Training,Functional Mobility,Patient/Family Education,Discharge Planning Discharge Recommendations OT Discharge Recommendations Home with Assistance, Outpatient PT Transportation Needs at Discharge Private Vehicle
--- NOTE | 2023-09-30 11:08 | CM.DANOTE ---
Initial DCP Assessment Note Pt is a 83 yo female, resident of [place], [place], now POD#1 from left GIULIANO by Dr Kent PCP: Skinny Anand Payer: DORIS/Yazmin Reviewed chart, pt discussed in multidisciplinary rounds this morning. Therapy has cleared pt for return home w/family to assist and pt has planned for home, DC order from Ortho has already been initiated this morning. Pt will stay on cottage on her property with no stairs, daughter and LONG plan to stay on the property to assist. No barriers identified at this time to patient's safe discharge home w/family to assist; close outpatient f/u recommended. CM team will plan to follow clinical course closely in case any DC needs or concerns arise. BUZZ Meng Discharge Planning/Care Management CM Discharge Assessment Start: 09/30/23 11:03 Freq: Status: Active Protocol: Document 09/30/23 11:04 [facility] (Rec: 09/30/23 11:08 [facility] [id number]) Discharge Planning Assessment Assigned Electronic Engineering Technician BUZZ Chase DPOA/Assigned Designee Name dong Mulligan Contact Information [phone] Advance Directives? Yes Advance Directives on File Yes History Provided By Patient,Family Member,Medical Record Prior Living Arrangements House Household Members none Type of transporation used prior to Drives own vehicle admit Independent with ADL's Yes: Poor activity tolerance r /t pain in hip, FWW Is patient alert and oriented? Yes Needs Assistance With Home Chores / Shopping Patient/Family Preference OP PT Therapy Barriers to Discharge No Discharge Plan Home Transportation Arrangement Family Referrals Initiated None needed
== END 2023-09-30 10:40 | disposition home or self-care (01) ==
LOC: OR 06:17 → AC 06:32
PROVIDERS: PCP Family Medicine; Referring Provider Orthopaedic Surgery; Visit Provider Orthopaedic Surgery
PROC: (CPT 27130; principal; 2023-09-29 07:45)
DX: M16.12 Unilateral primary osteoarthritis, left hip (principal)
CPT/HCPCS: 27130; 36415; 73502; 76000; 85014; 85018; 97162; 97165; 97530; 97535; C1776; C9290; J0171; J0690; J2405; J2704